=== PATIENT | male | born 1980 | race Caucasian/White ===

== ENCOUNTER 2016-07-22 08:59 | Emergency (ER) | payer OTHER ==
[~2016-07-22] VITALS: Ht 167.6 cm; Wt 78.2 kg
[2016-07-22 09:25] VITALS: BP 130/90; PULSE 118; RESP 16; TEMP 98.5; O2SAT 99
[2016-07-22] MEDS ORDERED: ONDANSETRON HCL 4 MG/2 ML VIAL IVP ONE (09:45)
[2016-07-22] MEDS ORDERED: SODIUM CHLOR 0.9% 1000 ML INJ 1,000 ML IV SCH (09:45)
[2016-07-22] MEDS ORDERED: SODIUM CHLORIDE 0.9% FLUSH 5 ML FLUSH IVF PRN (09:45)
[2016-07-22] MEDS ORDERED: KETOROLAC TROMETHAMINE 30 MG/ML (IVP) VIAL IVP ONE (09:45)
[2016-07-22 10:34] LABS: AUTOMATED NEUTROPHIL # 11.1 TH/MM3 (1.8-7.7); BASOPHIL # 0.2 TH/MM3 (0-0.2); BASOPHIL % 1.9 % (0.0-2.0); HEMATOCRIT 50.6 % (39.0-51.0); HEMO FLAGS DIFF FINAL; LYMPH % 4.4 % (9.0-44.0); LYMPHOCYTE # 0.5 TH/MM3 (1.0-4.8); MEAN CORPUSCULAR HEMOGLOBIN 31.9 PG (27.0-34.0); MEAN CORPUSCULAR HGB CONC 34.3 % (32.0-36.0); MONO % 4.6 % (0.0-8.0); NEUT % 89.1 % (16.0-70.0); PLATELET COUNT 249 TH/MM3 (150-450); RED BLOOD COUNT 5.44 MIL/MM3 (4.50-5.90); RED CELL DISTRIBUTION WIDTH 12.8 % (11.6-17.2); WHITE BLOOD COUNT 12.4 TH/MM3 (4.0-11.0)
[2016-07-22 10:37] LABS: BLOOD, URINE NEG (NEG); GLUCOSE,URINE NEG (NEG); NITRITE,URINE NEG (NEG)
[2016-07-22 10:43] LABS: KETONE, URINE 80 OR GREATER mg/dL (NEG); METHOD OF COLLECTION CLEAN CATCH; URINE COLOR YELLOW (YELLW/STRAW)
[2016-07-22 10:44] LABS: COMMENT (UR) CULT NOT INDICATED; CULTURE IF INDICATED CULT NOT INDICATED; SQUAMOUS EPITHELIAL CELL URINE 0-5 /hpf (0-5)
[2016-07-22 10:50] LABS: CHLORIDE 101 MEQ/L (98-107); SODIUM (NA) 136 MEQ/L (136-145)
[2016-07-22 10:56] LABS: ANION GAP 11 MEQ/L (5-15); APTT (PATIENT) 24.9 SEC (24.3-30.1); BLOOD UREA NITROGEN 18 MG/DL (7-18); PROTHROMBIN TIME - PATIENT 11.2 SEC (9.8-11.6)
[2016-07-22 10:58] LABS: ALT (GPT) 32 U/L (12-78); AST (GOT) 31 U/L (15-37); GLOMERULAR FILTRATION RATE 85 ML/MIN (>89)
[2016-07-22 11:00] LABS: POTASSIUM 5.2 MEQ/L (3.5-5.1); TOTAL BILIRUBIN ADULT 0.8 MG/DL (0.2-1.0)
[2016-07-22 11:01] LABS: ALKALINE PHOSPHATASE 61 U/L (45-117); INDIRECT BILIRUBIN 0.7 MG/DL (0.0-0.8)
[2016-07-22 11:21] VITALS: BP 124/70; PULSE 97; RESP 18; O2SAT 97
--- NOTE | 2016-07-22 11:25 | RADHPO ---
EXAM DATE/TIME: 07/22/2016 10:52 [place] COMPARISON: No previous studies available for comparison. INDICATIONS : Right upper quadrant pain. MEDICAL HISTORY : Nausea. Vomiting. Diarrhea. Abdominal pain. SURGICAL HISTORY : None. ENCOUNTER: Initial ACUITY: 1 day PAIN SCORE: 6/10 LOCATION: Right upper quadrant MEASUREMENTS: LIVER: 14.4 cm length COMMON DUCT: 4 mm RIGHT KIDNEY: 10.3 x 4.9 x 5.0 cm FINDINGS: LIVER: 8 mm cyst in the right lobe. Otherwise within normal limits. COMMON DUCT: No intraluminal mass or stone visualized. GALLBLADDER: No calculi identified. Wall thickness at the upper limits of normal measuring 3-4 mm. No pericholecys tic fluid. PANCREAS: Poorly visualized due to overlying bowel gas. RIGHT KIDNEY: No evidence of hydronephrosis, stone, or mass. CONCLUSION: 1. Gallbladder wall thickness at the upper limits of normal. No gallstones or pericholecystic fluid. 2. Subcentimeter simple hepatic cyst. 3. Otherwise within normal limits. Wiley Rojo MD on July 22, 2016 at 11:20 Board Certified Radiologist. This report was verified electronically.
[2016-07-22] MEDS ORDERED: FAMOTIDINE 20 MG/2 ML VIAL IV PUSH ONE (11:45)
[2016-07-22] MEDS ORDERED: ALUMINUM/MAGNESIUM/SIMETH 30 ML CUP PO ONE (11:45)
[2016-07-22] MEDS ORDERED: LIDOCAINE VISCOUS 2% SOLN 15 ML UDC PO ONE (11:45)
[2016-07-22] MEDS ORDERED: ZOFR4TAB3 SL (11:46)
--- NOTE | 2016-07-22 11:46 | PD ---
HPI Chief Complaint: GI Complaint Time Seen by Provider: 09:41 Travel History International Travel<30 days: No Contact w/Intl Traveler<30days: No Traveled to known affect area: No History of Present Illness HPI Patient is a 35-year-old male comes in complaining of abdominal pain, nausea, vomiting. diarrhea that started early this morning. He says he has had multiple episodes of each. He denies seeing any blood in his stool or his vomit. He says he last ate comes home made tacos prior to this occurring. His family ate the same thing and has not had any symptoms. He denies fever or chills. He localizes his pain to the RUQ. He says he is currently doing a "cleanse" and has completely cut sugar out of his diet. He says he is also taking a few dietary supplements. [facility] Past Medical History Medical History: Denies Significant Hx Influenza Vaccination: No Past Surgical History Surgical History: No Previous Surgery Social History Alcohol Use: No Tobacco Use: No Substance Use: No Allergies-Medications (Allergen,Severity, Reaction): Coded Allergies: No Known Allergies (Unverified , 07/22/16) Reported Meds & Prescriptions Reported Meds & Active Scripts Active No Active Prescriptions or Reported Medications Review of Systems Except as stated in HPI: all other systems reviewed are Neg General / Constitutional: No: Fever, Chills HENT: No: Headaches, Lightheadedness Cardiovascular: No: Chest Pain or Discomfort Respiratory: No: Shortness of Breath Gastrointestinal: Positive: Nausea, Vomiting, Diarrhea, Abdominal Pain Genitourinary: No: Dysuria Musculoskeletal: No: Edema, Pain Skin: No Rash, No Change in Pigmentation Neurologic: No: Weakness, Dizziness Physical Exam Narrative GENERAL: Awake and alert, in no acute distress. SKIN: Warm and dry. HEAD: Atraumatic. Normocephalic. EYES: Pupils equal and round. No scleral icterus. ENT: Mucous membranes pink and moist. NECK: Trachea midline. No JVD. CARDIOVASCULAR: Regular rate and rhythm. No murmur appreciated. RESPIRATORY: No accessory muscle use. Clear to auscultation. Breath sounds equal bilaterally. GASTROINTESTINAL: Abdomen soft, nondistended. Tender to palpation of RUQ, no rebound or guarding. MUSCULOSKELETAL: No obvious deformities. No clubbing. No cyanosis. No edema. NEUROLOGICAL: Awake and alert. No obvious cranial nerve deficits. Motor grossly within normal limits. Normal speech. PSYCHIATRIC: Appropriate mood and affect; insight and judgment normal. Data Data Last Documented VS Vital Signs Date Time Temp Pulse Resp B/P Pulse Ox O2 Delivery O2 Flow Rate FiO2 07/22/16 11:21 97 Room Air 07/22/16 11:21 97 18 124/70 07/22/16 09:25 98.5 Orders Basic Metabolic Panel (Bmp) (07/22/16 09:45) Complete Blood Count With Diff (07/22/16 09:45) Lipase (07/22/16 09:45) Prothrombin Time / Inr (Pt) (07/22/16 09:45) Act Partial Throm Time (Ptt) (07/22/16 09:45) Urinalysis - C+S If Indicated (07/22/16 09:45) Ua Includes Microscopic (07/22/16 09:45) Us Abdomen Gallbladder (07/22/16 ) Iv Access Insert/Monitor (07/22/16 09:45) Ecg Monitoring (07/22/16 09:45) Oximetry (07/22/16 09:45) Ondansetron Inj (Zofran Inj) (07/22/16 09:45) Sodium Chlor 0.9% 1000 Ml Inj (Ns 1000 M (07/22/16 09:45) Sodium Chloride 0.9% Flush (Ns Flush) (07/22/16 09:45) Ketorolac Inj (Toradol Inj) (07/22/16 09:45) Hepatic Functional Panel (07/22/16 09:45) Labs Laboratory Tests Test 07/22/16 10:27 White Blood Count 12.4 TH/MM3 Red Blood Count 5.44 MIL/MM3 Hemoglobin 17.4 GM/DL Hematocrit 50.6 % Mean Corpuscular Volume 93.0 FL Mean Corpuscular Hemoglobin 31.9 PG Mean Corpuscular Hemoglobin 34.3 % Concent Red Cell Distribution Width 12.8 % Platelet Count 249 TH/MM3 Mean Platelet Volume 7.9 FL Neutrophils (%) (Auto) 89.1 % Lymphocytes (%) (Auto) 4.4 % Monocytes (%) (Auto) 4.6 % Eosinophils (%) (Auto) 0.0 % Basophils (%) (Auto) 1.9 % Neutrophils # (Auto) 11.1 TH/MM3 Lymphocytes # (Auto) 0.5 TH/MM3 Monocytes # (Auto) 0.6 TH/MM3 Eosinophils # (Auto) 0.0 TH/MM3 Basophils # (Auto) 0.2 TH/MM3 CBC Comment DIFF FINAL Differential Comment Prothrombin Time 11.2 SEC Prothromb Time International 1.0 RATIO Ratio Activated Partial 24.9 SEC Thromboplast Time Urine Collection Type CLEAN CATCH Urine Color YELLOW Urine Turbidity CLEAR Urine pH 6.0 Urine Specific [place] 1.032 Urine Protein TRACE mg/dL Urine Glucose (UA) NEG mg/dL Urine Ketones 80 OR GREATER mg/dL Urine Occult Blood NEG Urine Nitrite NEG Urine Bilirubin NEG Urine Leukocyte Esterase NEG Urine Squamous Epithelial 0-5 /hpf Cells Microscopic Urinalysis Comment CULT NOT INDICATED Sodium Level 136 MEQ/L Potassium Level 5.2 MEQ/L Chloride Level 101 MEQ/L Carbon Dioxide Level 24.0 MEQ/L Anion Gap 11 MEQ/L Blood Urea Nitrogen 18 MG/DL Creatinine 1.00 MG/DL Estimat Glomerular Filtration 85 ML/MIN Rate Random Glucose 123 MG/DL Calcium Level 10.0 MG/DL Total Bilirubin 0.8 MG/DL Direct Bilirubin LESS THAN 0.1 MG/DL Indirect Bilirubin 0.7 MG/DL Aspartate Amino Transf 31 U/L (AST/SGOT) Alanine Aminotransferase 32 U/L (ALT/SGPT) Alkaline Phosphatase 61 U/L Total Protein 9.0 GM/DL Albumin 4.7 GM/DL Lipase 231 U/L MDM Medical Decision Making Medical Screen Exam Complete: Yes Emergency Medical Condition: Yes Differential Diagnosis Cholecystitis versus cholelithiasis versus gastroenteritis versus colitis Narrative Course Patient is a 35-year-old male who comes in complaining of abdominal pain with nausea, vomiting, diarrhea. Exam shows some right upper quadrant tenderness. IV established, labs sent. Labs show elevation in white count to 12.4. Liver function tests are within normal limits. Right upper quadrant ultrasound performed shows no acute abnormalities. Patient given IV fluids, Zofran, Toradol. He reports improvement of the symptoms, with only mild pain now. Given GI cocktail. Patient able to keep down oral intake. Advised to drink plenty of fluids at home. Given a prescription for Zofran to take as needed for nausea. Advised to hold off on his cleanse for the next few days to give his GI system arrest. Advised to eat bland foods if he is hungry. Advised to return to the ED as needed for any worsening symptoms. Diagnosis Primary Impression: Gastroenteritis Patient Instructions: Gastroenteritis (ED), General Instructions Additional Instructions: Drink plenty of fluids. If you are hungry, eat bland foods for at least the next day. Take Zofran as needed for nausea. Follow up with your primary doctor. Return to the ED as needed for any worsening symptoms. Scripts Ondansetron Odt (Zofran Odt)4 Mg Tab4 Mg SL Q6HR PRN (Nausea/Vomiting) #12 TAB Ref 0 Prov:Ernestina Amaya MD 07/22/16 Disposition: 01 DISCHARGE HOME Condition: Stable Ernestina Amaya MD Jul 22, 2016 11:46
[2016-07-22 12:14] VITALS: BP 113/75
== END 2016-07-22 12:24 | disposition home or self-care (01) ==
LOC: PHED 08:59
DX: K52.9 Noninfective gastroenteritis and colitis, unspecified (principal)
CPT/HCPCS: 76705; 80048; 80076; 81001; 83690; 85025; 85610; 85730; 96361; 96374; 96375; 99284; J1885; J2405; J7030